=== PATIENT | male | born 1965 | race Caucasian/White ===

== ENCOUNTER → 2017-05-13 | Outpatient (CLI) | payer BC, OTHER ==
--- NOTE | 2017-05-13 15:34 | DIAGNOSTIC IMAGING REPORT ---
RIGHT SHOULDER 3 VIEWS HISTORY: RIGHT SHOULDER PAIN Right COMPARISON: None. FINDINGS: There is no fracture or dislocation. Soft tissues are unremarkable. No radiopaque foreign bodies. The right clavicle is intact. IMPRESSION: Unremarkable right shoulder. Electronically signed by: Andrew Dunne M.D. 05/13/2017 3:33 PM Dictated Date/Time: 05/13/2017 3:32 PM
== END ==
LOC: C.RDSM 12:57
PROVIDERS: ATTEND Family Medicine
DX: M25.511 Pain in right shoulder (principal)